=== PATIENT | female | born 1980 | race Caucasian/White ===

== ENCOUNTER 2019-10-02 07:29 | Emergency (ER) | payer MEDICAID ==
[~2019-10-02] VITALS: Ht 161.3 cm; Wt 84.4 kg
[2019-10-02 07:34] VITALS: BP 112/72
--- NOTE | 2019-10-02 07:41 | NUR ---
PT C/O SOB X 1-2 WEEKS IN TRIAGE. OCCURS ALL THE TIME, EVEN WHEN SITTING DOWN. 100% RA, SPEAKING FULL CLEAR SENTENCES, NAD. DENIES COUGH, FEVER, N/V. STATES "A LITTLE DIARRHEA" HOWEVER RIGHT BEFORE TAKING PT TO BED, PT STATES "I JUST WANT A TEST". CLARIFIED WITH PT WHETHER SHE IS HERE FOR TEST OR SOB. PT STATES "I'M JUST HERE FOR A TEST". HX- ASTHMA
--- NOTE | 2019-10-02 07:42 | NUR ---
URINE CUP GIVEN TO PT
--- NOTE | 2019-10-02 07:48 | NUR ---
DR. HE EVALUATING PT AT THIS TIME
--- NOTE | 2019-10-02 08:46 | NUR ---
PT LEFT WITHOUT DC INSTRUCTIONS
== END 2019-10-02 08:46 | disposition home or self-care (01) ==
LOC: MED 07:29
DX: N93.9 Abnormal uterine and vaginal bleeding, unspecified (principal); J45.909 Unspecified asthma, uncomplicated; Z88.0 Allergy status to penicillin
CPT/HCPCS: 81002; 81025; 99282; 99283